=== PATIENT | male | born 1945 | race Caucasian/White ===

== ENCOUNTER 2019-03-03 07:45 | Day surgery (SDC) | payer MEDICARE, OTHER ==
[2019-03-03] VITALS (15 sets, daily range): BP systolic 97–153; BP diastolic 42–77
[~2019-03-03] VITALS: Ht 175.3 cm; Wt 66.1 kg
[2019-03-03] MEDS ORDERED: MIDAZolam 5mg/ml 2ml vial IV ONE (08:10)
[2019-03-03] MEDS ORDERED: atropine 0.1mg/ml 10ml syringe IV ONE (08:10)
[2019-03-03] MEDS ORDERED: normal saline 1000ml 1,000 ML IV SCH (08:10)
[2019-03-03] MEDS ORDERED: fentaNYL/PF 50MCG/1 ML 2ML syringe IV ONE (08:10)
[2019-03-03] MEDS ORDERED: SEVE800T8 PO (08:28)
[2019-03-03] MEDS ORDERED: LISI-600 PO (08:28)
[2019-03-03] MEDS ORDERED: CEFD300C3 PO (08:28)
[2019-03-03] MEDS ORDERED: CALC0.253 PO (08:28)
[2019-03-03] MEDS ORDERED: MULT1TAB74 PO (08:28)
[2019-03-03] MEDS ORDERED: ALLO100T PO (08:28)
[2019-03-03] MEDS ORDERED: CARV12.5 PO (08:28)
[2019-03-03] MEDS ORDERED: REPA0.5T5 PO (08:28)
[2019-03-03] MEDS ORDERED: HYDR-3686 PO (08:28)
[2019-03-03] MEDS ORDERED: NITR0.4T51 SL (08:28)
[2019-03-03] MEDS ORDERED: PANT-47 PO (08:30)
[2019-03-03] MEDS ORDERED: glycopyrrolate 0.2mg/ml inj IV STA (09:32)
[2019-03-03] MEDS ORDERED: amiodarone 150mg/dext, iso-os 100 ML IV STA ×2 (09:32→10:19)
[2019-03-03 10:02] LABS: ALBUMIN 2.7 G/DL (3.4-5.0); ANION GAP 9 (8-16); BLOOD UREA NITROGEN 47 MG/DL (7-18); BUN/CREATININE RATIO 9.6 (5.4-32.0); CALCIUM 8.8 MG/DL (8.5-10.1); CHLORIDE 102 MMOL/L (99-107); CREATININE 4.92 MG/DL (0.60-1.10); GLUCOSE 68 MG/DL (70-104); MAGNESIUM 1.8 MG/DL (1.5-2.4); POTASSIUM 4.1 MMOL/L (3.5-5.1); SODIUM 142 MMOL/L (135-145); TOTAL CARBON DIOXIDE 31.5 MMOL/L (24-32); eGFR 12 ML/MIN
[2019-03-03 10:39] LABS: BASOPHILS % (AUTO) 0.7 % (0-1); EOSINOPHILS # (AUTO) 0.1 X10'3 (0-0.9); HEMATOCRIT 35.4 % (42.0-52.0); HEMOGLOBIN 11.3 g/dl (14.0-17.9); LYMPHOCYTES # (AUTO) 0.7 X10'3 (1.1-4.8); LYMPHOCYTES % (AUTO) 11.6 % (21-51); MEAN CORPUSCULAR HEMOGLOBIN 28.3 PG (27.0-31.0); MEAN CORPUSCULAR VOLUME 88.3 FL (78-98); MEAN PLATELET VOLUME 7.4 FL (7.4-10.4); MONOCYTES # (AUTO) 0.4 X10'3 (0-0.9); MONOCYTES % (AUTO) 7.6 % (2-12); NEUTROPHILS # (AUTO) 4.6 X10'3 (1.8-7.7); NEUTROPHILS % (AUTO) 78.1 % (42-75); PLATELET COUNT 90 X10'3 (140-440); RED BLOOD COUNT 4.01 X10'6 (4.70-6.10); RED CELL DISTRIBUTION WIDTH 17.4 % (11.5-14.5); WHITE BLOOD COUNT 5.9 X10'3 (4.5-11.0)
== END 2019-03-03 12:00 | disposition home or self-care (01) ==
LOC: SSTAY O 07:45
PROVIDERS: ATTEND Internal Medicine Cardiovascular Disease
DX: I48.19 Other persistent atrial fibrillation (principal); I10 Essential (primary) hypertension; I45.4 Nonspecific intraventricular block
CPT/HCPCS: 36415; 80048; 83735; 85025; 85610; 92960; 93005; 93312; 94760; J0282; J0461; J2250; J3010; J7030; J3490

== ENCOUNTER 2019-04-13 07:27 | Day surgery (SDC) | payer MEDICARE, OTHER ==
[2019-04-13] VITALS (7 sets, daily range): BP systolic 144–169; BP diastolic 54–64
[~2019-04-13] VITALS: Ht 175.3 cm; Wt 69.7 kg
[~2019-04-13 07:27] MED LIST: ALLO100T PO; CALC0.253 PO; CARV12.5 PO; CEFD300C3 PO; HYDR-3686 PO; LISI-600 PO; MULT1TAB74 PO; NITR0.4T51 SL; PANT-47 PO; REPA0.5T5 PO; SEVE800T8 PO
[2019-04-13] MEDS ORDERED: AMIO200T27 PO (13:37)
[2019-04-13] MEDS ORDERED: INSU100V43 SQ (13:37)
[2019-04-13] MEDS ORDERED: MELA1TAB28 PO (13:37)
[2019-04-13] MEDS ORDERED: VIT1TABL50 PO (13:37)
[2019-04-13] MEDS ORDERED: SENN-162 PO (13:37)
[2019-04-13] MEDS ORDERED: DOCU100C40 PO (13:37)
[2019-04-13] MEDS ORDERED: LISI-600 PO (13:37)
[2019-04-13] MEDS ORDERED: INSU100V9 SQ (13:37)
[2019-04-13] MEDS ORDERED: ASPI-1265 PO (13:37)
[2019-04-13] MEDS ORDERED: LACT1CAP57 PO (13:37)
[2019-04-13] MEDS ORDERED: METO5TAB85 PO (13:37)
== END 2019-04-13 10:55 | disposition home or self-care (01) ==
LOC: SSTAY O 07:27
PROVIDERS: ATTEND Radiology Diagnostic Radiology
DX: J90 Pleural effusion, not elsewhere classified (principal); E11.22 Type 2 diabetes mellitus with diabetic chronic kidney disease; N18.6 End stage renal disease; K70.31 Alcoholic cirrhosis of liver with ascites; I25.10 Atherosclerotic heart disease of native coronary artery without angina pectoris; I27.9 Pulmonary heart disease, unspecified; I35.0 Nonrheumatic aortic (valve) stenosis; Z79.899 Other long term (current) drug therapy; Z88.8 Allergy status to other drugs, medicaments and biological substances; Z79.82 Long term (current) use of aspirin; Z79.4 Long term (current) use of insulin; Z87.01 Personal history of pneumonia (recurrent); Z95.1 Presence of aortocoronary bypass graft; Z95.4 Presence of other heart-valve replacement
CPT/HCPCS: 32555; 71045; 82948; C1729

== ENCOUNTER 2019-07-10 09:16 | Outpatient (CLI) | payer MEDICARE, OTHER ==
[~2019-07-10 09:16] MED LIST changes: +AMIO200T27 PO; +ASPI-1265 PO; -CALC0.253 PO; -CEFD300C3 PO; +DOCU100C40 PO; -HYDR-3686 PO; +INSU100V43 SQ; +INSU100V9 SQ; +LACT1CAP57 PO; +MELA1TAB28 PO; +METO5TAB85 PO; -NITR0.4T51 SL; +SENN-263 PO; +VIT1TABL50 PO
[2019-07-10] MEDS ORDERED: LIDOcaine 2% 5ml jelly ONE (09:41)
== END 2019-07-10 10:27 | disposition home or self-care (01) ==
LOC: WOUND CARE 09:16 → EDSTATUS 09:40 → WOUND CARE 10:27
PROVIDERS: ATTEND Nurse Practitioner
DX: E11.622 Type 2 diabetes mellitus with other skin ulcer (principal); I83.228 Varicose veins of left lower extremity with both ulcer of other part of lower extremity and inflammation; L97.821 Non-pressure chronic ulcer of other part of left lower leg limited to breakdown of skin; E11.22 Type 2 diabetes mellitus with diabetic chronic kidney disease; I12.0 Hypertensive chronic kidney disease with stage 5 chronic kidney disease or end stage renal disease; N18.6 End stage renal disease; I25.2 Old myocardial infarction; M10.9 Gout, unspecified; D69.6 Thrombocytopenia, unspecified; I25.10 Atherosclerotic heart disease of native coronary artery without angina pectoris; I48.19 Other persistent atrial fibrillation; I45.4 Nonspecific intraventricular block; I27.9 Pulmonary heart disease, unspecified; Z95.1 Presence of aortocoronary bypass graft; Z87.442 Personal history of urinary calculi; Z99.2 Dependence on renal dialysis; Z95.4 Presence of other heart-valve replacement; Z79.4 Long term (current) use of insulin; Z79.82 Long term (current) use of aspirin; Z79.899 Other long term (current) drug therapy
CPT/HCPCS: 36416; 82948; G0463

== ENCOUNTER 2019-07-17 09:40 | Outpatient (CLI) | payer MEDICARE, OTHER ==
[2019-07-17] MEDS ORDERED: LIDOcaine 2% 5ml jelly ONE (10:19)
== END 2019-07-17 12:03 | disposition home or self-care (01) ==
LOC: WOUND CARE 09:40
PROVIDERS: ATTEND Nurse Practitioner
DX: E11.622 Type 2 diabetes mellitus with other skin ulcer (principal); I83.228 Varicose veins of left lower extremity with both ulcer of other part of lower extremity and inflammation; L97.821 Non-pressure chronic ulcer of other part of left lower leg limited to breakdown of skin; E11.22 Type 2 diabetes mellitus with diabetic chronic kidney disease; I12.0 Hypertensive chronic kidney disease with stage 5 chronic kidney disease or end stage renal disease; N18.6 End stage renal disease; I25.2 Old myocardial infarction; M10.9 Gout, unspecified; D69.6 Thrombocytopenia, unspecified; I25.10 Atherosclerotic heart disease of native coronary artery without angina pectoris; I48.19 Other persistent atrial fibrillation; I45.4 Nonspecific intraventricular block; I27.9 Pulmonary heart disease, unspecified; Z95.1 Presence of aortocoronary bypass graft; Z87.442 Personal history of urinary calculi; Z99.2 Dependence on renal dialysis; Z95.4 Presence of other heart-valve replacement; Z79.4 Long term (current) use of insulin; Z79.82 Long term (current) use of aspirin; Z79.899 Other long term (current) drug therapy
CPT/HCPCS: 36416; 82948; 93922; 93925; 93970; 97597

== ENCOUNTER 2019-07-27 10:19 | Day surgery (SDC) | payer MEDICARE, OTHER ==
[~2019-07-27 10:19] MED LIST changes: +MULT-620 PO; -MULT1TAB74 PO
[2019-07-27] MEDS ORDERED: LIDOcaine 2% 5ml jelly ONE (10:41)
== END 2019-07-27 11:17 | disposition home or self-care (01) ==
LOC: WOUND CARE 10:19
PROVIDERS: ATTEND Nurse Practitioner
DX: E11.622 Type 2 diabetes mellitus with other skin ulcer (principal); I83.228 Varicose veins of left lower extremity with both ulcer of other part of lower extremity and inflammation; L97.821 Non-pressure chronic ulcer of other part of left lower leg limited to breakdown of skin; E11.22 Type 2 diabetes mellitus with diabetic chronic kidney disease; I12.0 Hypertensive chronic kidney disease with stage 5 chronic kidney disease or end stage renal disease; N18.6 End stage renal disease; I25.2 Old myocardial infarction; M10.9 Gout, unspecified; D69.6 Thrombocytopenia, unspecified; I25.10 Atherosclerotic heart disease of native coronary artery without angina pectoris; I48.19 Other persistent atrial fibrillation; I45.4 Nonspecific intraventricular block; I27.9 Pulmonary heart disease, unspecified; Z95.1 Presence of aortocoronary bypass graft; Z87.442 Personal history of urinary calculi; Z99.2 Dependence on renal dialysis; Z95.4 Presence of other heart-valve replacement; Z79.4 Long term (current) use of insulin; Z79.82 Long term (current) use of aspirin; Z79.899 Other long term (current) drug therapy
CPT/HCPCS: 82948; 97597

== ENCOUNTER 2019-08-03 10:21 | Outpatient (CLI) | payer MEDICARE, OTHER ==
[~2019-08-03 10:21] MED LIST changes: -MULT-620 PO; +MULT1TAB74 PO
== END 2019-08-03 10:54 | disposition home or self-care (01) ==
LOC: WOUND CARE 10:21
PROVIDERS: ATTEND Nurse Practitioner
DX: E11.622 Type 2 diabetes mellitus with other skin ulcer (principal); I83.228 Varicose veins of left lower extremity with both ulcer of other part of lower extremity and inflammation; L97.821 Non-pressure chronic ulcer of other part of left lower leg limited to breakdown of skin; E11.22 Type 2 diabetes mellitus with diabetic chronic kidney disease; I12.0 Hypertensive chronic kidney disease with stage 5 chronic kidney disease or end stage renal disease; N18.6 End stage renal disease; I25.2 Old myocardial infarction; M10.9 Gout, unspecified; D69.6 Thrombocytopenia, unspecified; I25.10 Atherosclerotic heart disease of native coronary artery without angina pectoris; I48.19 Other persistent atrial fibrillation; I45.4 Nonspecific intraventricular block; I27.9 Pulmonary heart disease, unspecified; Z95.1 Presence of aortocoronary bypass graft; Z87.442 Personal history of urinary calculi; Z99.2 Dependence on renal dialysis; Z95.4 Presence of other heart-valve replacement; Z79.4 Long term (current) use of insulin; Z79.82 Long term (current) use of aspirin; Z79.899 Other long term (current) drug therapy
CPT/HCPCS: 36416; 82948; G0463

== ENCOUNTER 2019-08-17 10:15 | Outpatient (CLI) | payer MEDICARE, OTHER ==
[~2019-08-17 10:15] MED LIST changes: +MULT-620 PO; -MULT1TAB74 PO
== END 2019-08-17 10:49 | disposition home or self-care (01) ==
LOC: WOUND CARE 10:15 → EDSTATUS 10:20 → WOUND CARE 10:49
PROVIDERS: ATTEND Nurse Practitioner
DX: E11.622 Type 2 diabetes mellitus with other skin ulcer (principal); I70.238 Atherosclerosis of native arteries of right leg with ulceration of other part of lower leg; L97.811 Non-pressure chronic ulcer of other part of right lower leg limited to breakdown of skin; I70.248 Atherosclerosis of native arteries of left leg with ulceration of other part of lower leg; I83.228 Varicose veins of left lower extremity with both ulcer of other part of lower extremity and inflammation; L97.828 Non-pressure chronic ulcer of other part of left lower leg with other specified severity; E11.22 Type 2 diabetes mellitus with diabetic chronic kidney disease; I12.0 Hypertensive chronic kidney disease with stage 5 chronic kidney disease or end stage renal disease; N18.6 End stage renal disease; I25.2 Old myocardial infarction; M10.9 Gout, unspecified; D69.6 Thrombocytopenia, unspecified; I25.10 Atherosclerotic heart disease of native coronary artery without angina pectoris; I48.19 Other persistent atrial fibrillation; I45.4 Nonspecific intraventricular block; I27.9 Pulmonary heart disease, unspecified; Z95.1 Presence of aortocoronary bypass graft; Z87.442 Personal history of urinary calculi; Z99.2 Dependence on renal dialysis; Z95.4 Presence of other heart-valve replacement; Z79.4 Long term (current) use of insulin; Z79.82 Long term (current) use of aspirin; Z79.899 Other long term (current) drug therapy
CPT/HCPCS: 36416; 82948; G0463